=== PATIENT | female | born 1960 | race Hispanic/Latino ===

== ENCOUNTER 2018-11-11 12:55 | Emergency (ER) | payer MEDICARE ==
[2018-11-11 12:55] VITALS: BMI 26.6
[2018-11-11 13:06] VITALS: BP 125/95; PULSE 93; RESP 18; TEMP 97.9; O2SAT 100
--- NOTE | 2018-11-11 13:22 | ED PDOC ---
Arrival/HPI - General Chief Complaint: Cough, Cold, Congestion Time Seen by Provider: 11/11/18 13:03 Historian: Patient - History of Present Illness Narrative History of Present Illness (Text): 11/11/18 13:27 A 58 year old female, whose past medical history includes bronchitis and bipolar disorder, presents to the emergency department complaining of shortness of breath and cough. Patient reports experiencing cold symptoms for approximately 1 month. She states she went to go see her PMD, but was seen my nurse practitioner instead. Patient was prescribed an inhaler(which she already uses for her bronchitis), cough syrup, and antibiotics. States she had finished her cough syrup and began developing shortness of breath afterwards, and has not stopped coughing. Also, she mentions experiencing wheezing during the night and has been unable to sleep because of this. She mentions also prescribed by her PMD to have a CXR performed, however never had the chance to do so due to the holidays and busy with family. Patient denies any chest pain, nausea, vomiting, diarrhea, abdominal pain, or any other complaints at this time.Denies any recent history of smoking, mentions she smoked when she was 21 years old for approximately 1-2 years, and stopped afterwards. PMD: Dr. Connor Past Medical History - Provider Review Nursing Documentation Reviewed: Yes - Cardiac Hx Pacemaker: No - Neurological Hx Paralysis: No - Hematological/Oncological Hx Blood Transfusions: No - Musculoskeletal/Rheumatological Hx Musculoskeletal Disorders: Yes - Psychiatric Hx Emotional Abuse: No Hx Physical Abuse: No Hx Substance Use: No - Surgical History Other/Comment: Ovarian cyst - Anesthesia Hx Anesthesia Reactions: No Hx Malignant Hyperthermia: No - Suicidal Assessment Feels Threatened In Home Enviroment: No Family/Social History - Physician Review Nursing Documentation Reviewed: Yes Family/Social History: No Known Family HX Smoking Status: Former Smoker Hx Alcohol Use: Yes (wine) Frequency of alcohol use: Socially Hx Substance Use: No Hx Substance Use Treatment: No Allergies/Home Meds Allergies/Adverse Reactions: Allergies shellfish derived Allergy (Severe, Verified 11/11/18 13:04) ANAPHYLAXIS Home Medications: Home Meds Medication Instructions Recorded Confirmed Acetaminophen/Hydrocodone Bi 1 tab PO PRN PRN 08/15/16 11/11/18 [Vicodin 300 mg-5 mg] DULoxetine [Cymbalta] 30 mg PO HS 08/15/16 11/11/18 EPINEPHrine- [EPINEPHrine] 1 mg SC STAT PRN 08/15/16 11/11/18 Gabapentin [Neurontin] 300 mg PO DAILY 08/15/16 11/11/18 Lubiprostone [Amitiza] 24 mcg PO BID 08/15/16 11/11/18 clonazePAM [clonAZEPAM] 0.5 mg PO PRN PRN 08/15/16 11/11/18 Review of Systems - Physician Review All systems were reviewed & negative as marked: Yes - Review of Systems Respiratory: SOB, Cough Cardiovascular: absent: Chest Pain, Palpitations Gastrointestinal: absent: Abdominal Pain, Diarrhea, Nausea, Vomiting Neurological: absent: Headache, Dizziness Physical Exam - Physical Exam Narrative Physical Exam (Text): Gen: NAD, cooperative, well appearing, non-toxic. Head: NCAT. HEENT: EYES: PERRL, EOMI, conjunctiva clear, EARS: TMs clear MOUTH: moist MM, posterior pharynx without erythema or exudate, uvula midline. CV: (+) S1S2, RRR, no M/G/R LUNGS: CTA B/L, No W/R/R, good air movement Abd: Soft, NTTP, no guarding, rebound or rigidity. Neuro: AAO x 3, GCS 15, CN 2-12 intact, motor and sensory grossly intact, 5/5 muscle strength B/L UE's and LE's. ext: no cyanosis or edema Vital Signs Reviewed: Yes Vital Signs Temp Pulse Resp BP Pulse Ox 11/11/18 13:01 97.9 F 93 H 18 125/95 H 100 Temperature: Afebrile Blood Pressure: Normal Pulse: Regular Respiratory Rate: Normal Appearance: Positive for: Well-Appearing, Non-Toxic, Comfortable Pain Distress: None Mental Status: Positive for: Alert and Oriented X 3 Medical Decision Making ED Course and Treatment: 11/11/18 13:28 Impression: 58 year old female with shortness of breath and cough. No acute findings on physical examination. Plan: -- Reassess and disposition Progress Notes: 11/11/18 13:29 Patient to be discharged and will follow-up with PMD. - Scribe Statement The provider has reviewed the documentation as recorded by the Ankur Weinstein Provider Scribe Attestation: All medical record entries made by the Scribe were at my direction and personally dictated by me. I have reviewed the chart and agree that the record accurately reflects my personal performance of the history, physical exam, medical decision making, and the department course for this patient. I have also personally directed, reviewed, and agree with the discharge instructions and disposition. Disposition/Present on Arrival - Present on Arrival Any Indicators Present on Arrival: No History of DVT/PE: No History of Uncontrolled Diabetes: No Urinary Catheter: No History of Decub. Ulcer: No History Surgical Site Infection Following: None - Disposition Have Diagnosis and Disposition been Completed?: Yes Diagnosis: URI (upper respiratory infection) Disposition: HOME/ ROUTINE Disposition Time: 13:20 Patient Plan: Admission, Discharge Patient Problems: Current Active Problems Problem Status Onset URI (upper respiratory infection) Acute Condition: GOOD Discharge Instructions (ExitCare): Viral Upper Respiratory Infection, Adult (DC) Additional Instructions: AUGUSTO GREGORIO, thank you for letting us take care of you today. Your provider was Eliza Deutsch MD and you were treated for shortness of breath ( hard breathing). The emergency medical care you received today was directed at your acute symptoms. If you were prescribed any medication, please fill it and take as directed. It may take several days for your symptoms to resolve. Return to the Emergency Department if your symptoms worsen, do not improve, or if you have any other problems. Please contact your doctorin 1-2 days for a follow up appointment. Bring any paperwork you were given at discharge with you along with any medications you are taking to your follow up visit. Our treatment cannot replace ongoing medical care by a primary care provider outside of the emergency department. Thank you for allowing the [facility] team to be part of your care today. Prescriptions: Benzonatate [Tessalon Perle] 100 mg PO TID PRN #30 capsule PRN Reason: Cough Forms: [employer] (Persian)
--- NOTE | 2018-11-11 13:27 | ED PDOC ---
Arrival/HPI - General Chief Complaint: Cough, Cold, Congestion Time Seen by Provider: 11/11/18 13:03 Historian: Patient - History of Present Illness Narrative History of Present Illness (Text): 11/11/18 13:27 A 58 year old female, whose past medical history includes bronchitis and bipolar disorder, presents to the emergency department complaining of shortness of breath and cough. Patient reports experiencing cold symptoms for approximately 1 month. She states she went to go see her PMD, but was seen my nurse practitioner instead. Patient was prescribed an inhaler(which she already uses for her bronchitis), cough syrup, and antibiotics. States she had finished her cough syrup and began developing shortness of breath afterwards, and has not stopped coughing. Also, she mentions experiencing wheezing during the night and has been unable to sleep because of this. She mentions also prescribed by her PMD to have a CXR performed, however never had the chance to do so due to the holidays and busy with family. Patient denies any chest pain, nausea, vomiting, diarrhea, abdominal pain, or any other complaints at this time.Denies any recent history of smoking, mentions she smoked when she was 21 years old for approximately 1-2 years, and stopped afterwards. PMD: Dr. Connor Past Medical History - Provider Review Nursing Documentation Reviewed: Yes - Cardiac Hx Pacemaker: No - Neurological Hx Paralysis: No - Hematological/Oncological Hx Blood Transfusions: No - Musculoskeletal/Rheumatological Hx Musculoskeletal Disorders: Yes - Psychiatric Hx Emotional Abuse: No Hx Physical Abuse: No Hx Substance Use: No - Surgical History Other/Comment: Ovarian cyst - Anesthesia Hx Anesthesia Reactions: No Hx Malignant Hyperthermia: No - Suicidal Assessment Feels Threatened In Home Enviroment: No Family/Social History - Physician Review Nursing Documentation Reviewed: Yes Family/Social History: No Known Family HX Smoking Status: Former Smoker Hx Alcohol Use: Yes (wine) Frequency of alcohol use: Socially Hx Substance Use: No Hx Substance Use Treatment: No Allergies/Home Meds Allergies/Adverse Reactions: Allergies shellfish derived Allergy (Severe, Verified 11/11/18 13:04) ANAPHYLAXIS Home Medications: Home Meds Medication Instructions Recorded Confirmed Acetaminophen/Hydrocodone Bi 1 tab PO PRN PRN 08/15/16 11/11/18 [Vicodin 300 mg-5 mg] DULoxetine [Cymbalta] 30 mg PO HS 08/15/16 11/11/18 EPINEPHrine- [EPINEPHrine] 1 mg SC STAT PRN 08/15/16 11/11/18 Gabapentin [Neurontin] 300 mg PO DAILY 08/15/16 11/11/18 Lubiprostone [Amitiza] 24 mcg PO BID 08/15/16 11/11/18 clonazePAM [clonAZEPAM] 0.5 mg PO PRN PRN 08/15/16 11/11/18 Review of Systems - Physician Review All systems were reviewed & negative as marked: Yes - Review of Systems Respiratory: SOB, Cough Cardiovascular: absent: Chest Pain, Palpitations Gastrointestinal: absent: Abdominal Pain, Diarrhea, Nausea, Vomiting Neurological: absent: Headache, Dizziness Physical Exam - Physical Exam Narrative Physical Exam (Text): Gen: NAD, cooperative, well appearing, non-toxic. Head: NCAT. HEENT: EYES: PERRL, EOMI, conjunctiva clear, EARS: TMs clear MOUTH: moist MM, posterior pharynx without erythema or exudate, uvula midline. CV: (+) S1S2, RRR, no M/G/R LUNGS: CTA B/L, No W/R/R, good air movement Abd: Soft, NTTP, no guarding, rebound or rigidity. Neuro: AAO x 3, GCS 15, CN 2-12 intact, motor and sensory grossly intact, 5/5 muscle strength B/L UE's and LE's. ext: no cyanosis or edema Vital Signs Reviewed: Yes Vital Signs Temp Pulse Resp BP Pulse Ox 11/11/18 13:01 97.9 F 93 H 18 125/95 H 100 Temperature: Afebrile Blood Pressure: Normal Pulse: Regular Respiratory Rate: Normal Appearance: Positive for: Well-Appearing, Non-Toxic, Comfortable Pain Distress: None Mental Status: Positive for: Alert and Oriented X 3 Medical Decision Making ED Course and Treatment: 11/11/18 13:28 Impression: 58 year old female with shortness of breath and cough. No acute findings on physical examination. Plan: -- Reassessment and disposition Progress Notes: 11/11/18 13:29 Patient to be discharged and will follow-up with PMD. - Scribe Statement The provider has reviewed the documentation as recorded by the Ankur Weinstein Provider Attestation: All medical record entries made by the Ankur were at my direction and personally dictated by me. I have reviewed the chart and agree that the record accurately reflects my personal performance of the history, physical exam, medical decision making, and the department course for this patient. I have also personally directed, reviewed, and agree with the discharge instructions and disposition. Disposition/Present on Arrival - Present on Arrival History of DVT/PE: No History of Uncontrolled Diabetes: No Urinary Catheter: No History of Decub. Ulcer: No History Surgical Site Infection Following: None - Disposition Patient Problems: Current Active Problems Problem Status Onset URI (upper respiratory infection) Acute Forms: [employer] ([employer])
--- NOTE | 2018-11-12 10:09 | CARD ---
APPROVED REPORT Date of service: 11/11/2018 EKG Measurement [id number] 140P [id number] <Conclusion> Normal sinus rhythm Normal ECG
== END 2018-11-11 13:30 | disposition home or self-care (01) ==
LOC: ED 12:55
DX: J06.9 Acute upper respiratory infection, unspecified (principal); Z87.891 Personal history of nicotine dependence

== ENCOUNTER 2018-11-18 11:46 | Outpatient (CLI) | payer MEDICARE | END 2018-11-18 11:47 | disposition home or self-care (01) | LOC: RAD 11:46 ==

== ENCOUNTER 2019-01-02 10:29 | Day surgery (SDC) | payer MEDICARE ==
[2016-08-15 13:51] VITALS: BMI 26.6
[~2019-01-02 10:29] MED LIST: Sodium Chloride 0.9% 1,000 ML IV SCH
[2019-01-02] MEDS ORDERED: Propofol 10 mg/ml Inj (20 ML) ONE (12:40)
[2019-01-02 14:57] VITALS: BP 113/75; PULSE 68; RESP 15; TEMP 97.8; O2SAT 100
== END 2019-01-02 15:26 | disposition home or self-care (01) ==
LOC: ENDO 10:29
PROVIDERS: ATTEND Internal Medicine Gastroenterology
DX: Z12.11 Encounter for screening for malignant neoplasm of colon (principal); D12.2 Benign neoplasm of ascending colon; K64.1 Second degree hemorrhoids; K59.00 Constipation, unspecified; K62.5 Hemorrhage of anus and rectum
CPT/HCPCS: 45380; 88305; J2001; J2704; J3010; J7030; J7040